=== PATIENT | female | born 1960 | race Caucasian/White ===

== ENCOUNTER → 2019-11-06 15:38 | Outpatient (CLI) | payer BC, SELFPAY ==
--- NOTE | ~2019-11-06 | MM_ITS ---
EXAMINATION: MM screening [facility] HISTORY: Screening mammogram TECHNIQUE: Craniocaudal and mediolateral oblique 3-D tomosynthesis images were obtained and synthetic 2-D images were generated. CAD analysis was submitted and interpreted. COMPARISON: 08/01/2018, 08/06/2017, 05/26/2016 BREAST PARENCHYMAL COMPOSITION: The breasts are heterogeneously dense, which may obscure small masses . FINDINGS: There is no evidence of suspicious mass, calcification, or architectural distortion to sugg est malignancy in either breast. There has been no suspicious interval change. IMPRESSION: 1. No mammographic evidence of malignancy. 2. Recommend routine screening mammography in one year. BI-RADS Category 1: Negative Reviewed, dictated and finalized at location A.
== END ==
PROVIDERS: Visit Provider Nurse Practitioner
DX: Z12.31 Encounter for screening mammogram for malignant neoplasm of breast (principal)
CPT/HCPCS: 77063; 77067

== ENCOUNTER → 2021-02-17 14:55 | Outpatient (CLI) | payer BC, SELFPAY ==
--- NOTE | ~2021-02-17 | MM_ITS ---
EXAMINATION: MM screening [facility] w [facility] HISTORY: Screening TECHNIQUE: Craniocaudal and mediolateral oblique 3-D tomosynthesis images were obtained and synthetic 2-D images were generated. CAD analysis was submitted and interpreted. COMPARISON: Comparison to multiple prior studies sequentially, with oldest reviewed study dated 04/26. BREAST PARENCHYMAL COMPOSITION: There are scattered areas of fibroglandular density. FINDINGS: There is no evidence of suspicious mass, calcification, or architectural distortion to sugg est malignancy in either breast. There has been no suspicious interval change. IMPRESSION: 1. No mammographic evidence of malignancy. 2. Recommend routine screening mammography in one year. BI-RADS Category 1: Negative Reviewed, dictated and finalized at location A. CONTROLS TECHNICIAN
== END ==
PROVIDERS: Visit Provider Nurse Practitioner
DX: Z12.31 Encounter for screening mammogram for malignant neoplasm of breast (principal)
CPT/HCPCS: 77063; 77067

== ENCOUNTER 2021-03-11 00:18 | Day surgery (SDC) | payer BC, SELFPAY ==
[2021-02-26 14:40] VITALS: BMI 28.8
[2021-03-11 07:14] VITALS: BP 151/78; PULSE 87; RESP 16; TEMP 36.1; O2SAT 100; BMI 27.5
[2021-03-11] MEDS: LACTATED RINGERS 1,000 ML 150 ML IV CONT (07:29)
--- NOTE | 2021-03-11 07:29 | WPDGICN ---
Assessment and Plan Assessment and plan (1) Encounter for screening colonoscopy: Code(s): Z12.11 - Encounter for screening for malignant neoplasm of colon Status: Acute Assessment and Plan: Patient presents for screening colonoscopy. Appears to be at average risk for colon polyps. GI Consult Note Consult date/time: 03/11/21 07:29 HPI: Toma Gutierrez is a 61 year old female Presents for screening colonoscopy. Patient's current weight appetite bowel movements are normal. She denies abdominal pain. She has had no bleeding. Family history is noncontributory. Patient's last colonoscopy was more than 10 years ago. She presents today for neoplasia screening. Review of Systems Review of Systems: All systems reviewed & are unremarkable except as noted in HPI and below PMFSH Family History Family History (Updated 10/11/15 @ 23:19 by DOCTOR UNKNOWN) Mother Family history of blood dyscrasia Hypertension Family history of heart disease in male family member before age 55 Family history of malignant neoplasm Father Depression Family history of diabetes mellitus in first degree relative Family history of heart disease in male family member before age 55 Family history of congenital heart disease Grandparent Hypertension Cerebrovascular accident Family history of heart disease in male family member before age 55 Social History Social History Smoking status: Never smoker Second hand tobacco smoke exposure: No Alcohol intake: current Substance use: never Substance use type: does not use Living arrangements: with family Spiritual care concerns: No Meds Home Medications and Allergies Home Medications Medication Instructions Recorded Confirmed Type Citracel 500 mg PO DAILY 11/09/19 02/26/21 History apremilast [Otezla] 30 mg PO BID 11/09/19 02/26/21 History atorvastatin 10 mg PO DAILY 11/09/19 02/26/21 History omgerbo-xfmirntgt-igbo 1 tab-cap PO DAILY 11/09/19 02/26/21 History cholecalciferol (vitamin D3) 25 mcg PO BID 11/09/19 02/26/21 History [Vitamin D3] lactobacillus combination no.8 3,000 mmu cells PO DAILY 11/09/19 02/26/21 History [Adult Probiotic] paroxetine HCl 20 mg PO DAILY 11/09/19 02/26/21 History rivaroxaban [Xarelto] 20 mg PO DAILY 11/09/19 02/26/21 History sodium,potassium,mag sulfates See Rx Instructions .ROUTE 04/16/20 Rx [Suprep Bowel Prep Kit] .COMPLEX #1 ml calcium 600 mg PO DAILY 02/26/21 02/26/21 History Allergies Allergy/AdvReac Type Severity Reaction Status Date / Time No Known Allergies Allergy Verified 02/26/21 14:41 Vital Signs Vital Signs - 24 hr 03/11/21 07:14 Temperature 97 F L Pulse Rate 87 Respiratory Rate 16 Blood Pressure 151/78 H Pulse Oximetry 100 Exam Narrative: Physical exam reveals patient to be alert. Vital signs stable. HEENT exam is unremarkable. Patient is anicteric. Lungs are clear to auscultation and percussion. Heart is without murmur or extra sounds. Abdominal exam bowel sounds are present soft nontender with no organomegaly. Digital external rectal exam is normal.
--- NOTE | 2021-03-11 07:42 | WPDANESEPPF ---
Anes - Initial Pre Proc Eval Procedure: Operation Date: 03/11/21 08:30 Proposed Procedures p Screening Colonoscopy - Philipp Lamb MD Date/Time: 03/11/21 07:42 Surgeon: Philipp Lamb MD Pre Op Diagnosis: neoplasm screening Patient Data Age: 61 Gender: F Height: 1.52 m Weight: 64 kg Last Vital Signs Temp 36.1 C L 03/11/21 07:14 Pulse 87 03/11/21 07:14 Resp 16 03/11/21 07:14 BP 151/78 H 03/11/21 07:14 Pulse Ox 100 03/11/21 07:14 Allergies Allergy/AdvReac Type Severity Reaction Status Date / Time No Known Allergies Allergy Verified 02/26/21 14:41 Home Medications Medication Instructions Recorded Confirmed Type Citracel 500 mg PO DAILY 11/09/19 02/26/21 History apremilast [Otezla] 30 mg PO BID 11/09/19 02/26/21 History atorvastatin 10 mg PO DAILY 11/09/19 02/26/21 History syaofuu-nfjfugnbg-dkaz 1 tab-cap PO DAILY 11/09/19 02/26/21 History cholecalciferol (vitamin D3) 25 mcg PO BID 11/09/19 02/26/21 History [Vitamin D3] lactobacillus combination no.8 3,000 mmu cells PO DAILY 11/09/19 02/26/21 History [Adult Probiotic] paroxetine HCl 20 mg PO DAILY 11/09/19 02/26/21 History rivaroxaban [Xarelto] 20 mg PO DAILY 11/09/19 02/26/21 History sodium,potassium,mag sulfates See Rx Instructions .ROUTE 04/16/20 Rx [Suprep Bowel Prep Kit] .COMPLEX #1 ml calcium 600 mg PO DAILY 02/26/21 02/26/21 History Patient hx anesthesia problems: none Family hx anesthesia problems: none Results Review: All pre-operative results and documents have been reviewed as part of the pre-operative evaluation. [facility] Past Medical History Medical History (Updated 03/11/21 @ 07:42 by Oz Yee MD) Factor V deficiency Hyperlipidemia Melanoma Surgical History Surgical History (Updated 03/11/21 @ 07:44 by Oz Yee MD) H/O arthroscopic knee surgery H/O: hysterectomy Family History Family History Mother Family history of blood dyscrasia Hypertension Family history of heart disease in male family member before age 55 Family history of malignant neoplasm Father Depression Family history of diabetes mellitus in first degree relative Family history of heart disease in male family member before age 55 Family history of congenital heart disease Grandparent Hypertension Cerebrovascular accident Family history of heart disease in male family member before age 55 Social History Social History Smoking status: Never smoker Second hand tobacco smoke exposure: No Alcohol intake: current Substance use: never Substance use type: does not use Living arrangements: with family Spiritual care concerns: No Anes - Eval Final PreProcedure Day of Procedure 03/11/21 07:42 Patient weight: overweight Heart: regular rate and rhythm Lungs: clear to auscultation Airway: Mallampati scale class II Neurological: alert and oriented Last oral intake: >/= 8 hours ASA classification: III Emergent: no Anesthetic plan: proceed Anesthesia type and monitoring: general GIVS and standard monitoring Results Review: All pre-operative results and documents have been reviewed as part of the pre-operative evaluation. Informed Consent: The patient's anesthetic plan and its attendant risks and benefits were discussed with the patient/family/POA. Questions were solicited and answers provided to the satisfaction of the patient/family/POA.
[2021-03-11 08:53] VITALS: BP 88/53; PULSE 70; RESP 18; O2SAT 97
[2021-03-11 09:03] VITALS: BP 106/66; PULSE 64; RESP 16; O2SAT 96
[2021-03-11 09:13] VITALS: BP 104/64; PULSE 55; RESP 16; O2SAT 100
== END 2021-03-11 09:28 | disposition home or self-care (01) ==
PROVIDERS: Visit Provider Internal Medicine Gastroenterology
PROC: 0DJD8ZZ Inspection of Lower Intestinal Tract, Via Natural or Artificial Opening Endoscopic (ICD-10-PCS; CPT 45378; principal; 2021-03-11 08:30)
DX: Z12.11 Encounter for screening for malignant neoplasm of colon (principal); D68.51 Activated protein C resistance; E78.5 Hyperlipidemia, unspecified; Z79.01 Long term (current) use of anticoagulants
CPT/HCPCS: 45378; J2704; J7120

== ENCOUNTER → 2021-06-09 12:12 | Outpatient (CLI) | payer BC, SELFPAY ==
--- NOTE | ~2021-06-09 | DEXA_ITS ---
Bone Density Report Name: DEREK SPENCER Age: 61 Sex: Female Ethnicity: White Date of : 1960 Indication: osteopenia; hysterectomy; postmenopausal Referring Provider: Hira, Deepti Study: Bone densitometry was performed. Exam Date: June 09, 2021 Accession number: [id number] Bone Density: Region BMD T-score Z-score Classification AP Spine (L1-L4) 0.900 -1.3 0.3 Osteopenia Femoral Neck (Left) 0.700 -1.3 0.1 Osteopenia Total Hip (Left) 0.889 -0.4 0.7 Normal Femoral Neck (Right) 0.674 -1.6 -0.2 Osteopenia Total Hip (Right) 0.888 -0.4 0.7 Normal Total Hip Mean 0.889 -0.4 0.7 Normal World Health Organization criteria for BMD impression classify patients as: Normal (T-score at or above -1.0), Osteopenia (T-score between -1.0 and -2.5), or Osteoporosis (T-score at or below -2.5). 10-year Fracture Risk(1): Major Osteoporotic Fracture 8.6% Hip Fracture 0.8% Reported Risk Factors: [place] (), Neck BMD=0.674, BMI=28.1 (1) FRAX(R) Version 3.08. Fracture probability calculated for an untreated patient. Fracture probability may be lower if the patient has received treatment. Previous Exams: Region Exam Age BMD T-score BMD Change BMD Change Date g/cm2 vs Baseline vs Previous AP Spine(L1-L4) 06/09/2021 61 0.900 -1.3 -0.007 -0.007 05/26/2016 56 0.907 -1.3 Total Hip(Left) 06/09/2021 61 0.889 -0.4 -0.045* -0.045* 05/26/2016 56 0.934 -0.1 Total Hip(Right) 06/09/2021 61 0.888 -0.4 -0.041* -0.041* 05/26/2016 56 0.928 -0.1 *Denotes significance at 95% confidence level, LSC for AP Spine = 0.022 g/cm2, LSC for Total Hip = 0.027 g/cm2 Clinical Information Provided by Patient: Has used the following medications: Vitamin D, Calcium Has the following medical conditions: Hysterectomy Patient maximum height was 60.8 Menopause Age: 43 Does not regularly consume dairy products Drinks caffeinated beverages Onset of menses at age 14 Number of children 3 Impression: The patient has low bone mass, based on the Right Femoral Neck T-score. The patient has an estimated ten-year risk of hip fracture of 0.8% and an estimated ten-year risk of major fracture of 8.6%, based on the WHO FRAX algorithm. The BMD for the Total Hip(Left) decreased, changing by -0.045 since the last DXA exam. The BMD for the Total Hip(Right) decreased, changing by -0.041 since the last DXA exam. Discussi
== END ==
PROVIDERS: Visit Provider Nurse Practitioner
DX: Z13.820 Encounter for screening for osteoporosis (principal); M85.88 Other specified disorders of bone density and structure, other site; M85.852 Other specified disorders of bone density and structure, left thigh; M85.851 Other specified disorders of bone density and structure, right thigh
CPT/HCPCS: 77080

== ENCOUNTER 2021-12-24 15:52 | Emergency (ER) | payer BC, SELFPAY ==
--- NOTE | ~2021-12-24 | XR_ITS ---
EXAMINATION: XR chest 2V DATE: 12/24/2021 17:02 INDICATION: Midsternal chest pain. Hypertension. TECHNIQUE: PA and lateral views of the chest were obtained. COMPARISON: Chest radiograph dated 12/16/17 FINDINGS: The lungs remain clear with no focal airspace opacities, pulmonary edema, pleural effusion or pneumot horax. The cardiomediastinal silhouette is normal. Mild to moderate thoracic spondylosis. IMPRESSION: 1. No acute cardiopulmonary disease. Reviewed, dictated and finalized at location B.
[2021-12-24 15:59] VITALS: BP 174/88; PULSE 90; RESP 18; TEMP 36.6; O2SAT 100
--- NOTE | 2021-12-24 16:13 | ECG_ITS ---
Measurements Intervals [place] Rate: 80 P: 20 ME: 131 QRS: 29 QRSD: 80 T: 18 QT: 371 QTc: 428 Interpretive Statements SINUS RHYTHM LOW QRS VOLTAGE IN PRECORDIAL LEADS [QRS DEFLECTION < 1.0 mV IN CHEST LEADS] FOR R-WAVE PROGRESSIO NONSPECIFIC ST-T CHANGES NO PREVIOUS ECG AVAILABLE FOR COMPARISON Electronically Signed On 12-24-2021 19:54:41 CDT by Nathalie Barragan M.D.
[2021-12-24 16:35] VITALS: PULSE 77; RESP 18; O2SAT 99
[2021-12-24 16:37] LABS: Basophils Percent Auto 0.3 % (0.2-1.2); Eosinophils Absolute Auto 0.4 K/mm3 (0-0.3); Eosinophils Percent Auto 7.2 % (0-4.4); Hematocrit 41.6 % (37.0-47.0); Hemoglobin 13.5 g/dL (12.0-15.0); Immature Granulocyte Absolute 0.02 K/mm3 (0.00-0.031); Immature Granulocyte Percent A 0.3 % (0-0.5); Lymphocytes Absolute Auto 0.86 K/mm3 (0.9-3.2); Mean Corpuscular HGB Conc 32.5 g/dl (32-36); Mean Corpuscular Hemoglobin 30.1 pg (26-34); Mean Corpuscular Volume 92.9 fl (80-100); Mean Platelet Volume 10.1 fl (7.4-10.4); Monocytes Absolute Auto 0.5 K/mm3 (0.1-0.6); Neutrophils Percent Auto 69.2 % (45.5-73.1); Platelet Count Result 251 k/mm3 (150-375); Red Blood Count 4.48 M/mm3 (4.2-5.4); Red Cell Distribution Width 12.5 % (11.5-14.5); White Blood Count 5.7 K/mm3 (4.5-10.0)
[2021-12-24 16:45] VITALS: PULSE 74; RESP 15; O2SAT 100
[2021-12-24 16:47] LABS: INR 1.1; Prothrombin Time 13.9 Seconds (11.1-14.7)
[2021-12-24 16:48] LABS: Partial Thromboplastin Time 30.2 SECONDS (22.3-36.8)
[2021-12-24 16:51] LABS: Alanine Aminotransferase 32 U/L (6-35); Albumin Level 4.6 g/dL (3.5-5.1); Alkaline Phosphatase 88 U/L (38-126); Anion Gap 7 mmol/L (8-16); Aspartate Amino Transferase 36 U/L (14-36); Bilirubin,Total 0.7 mg/dL (0.2-1.3); Blood Urea Nitrogen 18 mg/dL (7-17); Calcium 9.4 mg/dL (8.4-10.2); Carbon Dioxide 26 mmol/L (22-30); Chloride 106 mmol/L (98-107); Estimated CRCL calculation 54 ml/min; Estimated Glomerular Filt Rate > 60; Glucose 99 mg/dL (65-110); Lipase 185 U/L (23-300); Potassium 3.8 mmol/L (3.4-5.0); Sodium 139 mmol/L (137-145)
[2021-12-24 17:01] LABS: Troponin I < 0.012 ng/mL (0.000-0.034)
[2021-12-24 17:20] VITALS: PULSE 75
[2021-12-24 17:33] VITALS: PULSE 76; RESP 18; O2SAT 98
--- NOTE | 2021-12-24 17:36 | ED.CHESTPAIN ---
HPI - Chest Pain General Chief Complaint: Chest Pain <Sarina Dotson MD - Last Filed: 12/24/21 19:26> Stated Complaint: shaky, high bp, chest heaviness into throat <Sarina Dotson MD - Last Filed: 12/24/21 19:26> Time Seen by Provider: 12/24/21 16:40 <Sarina Dotson MD - Last Filed: 12/24/21 19:26> Source: patient and RN notes reviewed <Sarina Dotson MD - Last Filed: 12/24/21 19:26> Mode of arrival: ambulatory <Sarina Dotson MD - Last Filed: 12/24/21 19:26> Limitations: no limitations <Sarina Dotson MD - Last Filed: 12/24/21 19:26> History of Present Illness HPI narrative: This is a 61 year old female with history of hyperlipidemia who presents for evaluation of chest heaviness. PAtient states she was sitting at her desk at work when she developed midsternal chest heaviness. This sensation radiated to her throat and it lasted 15 minutes. She also reports episode of heart fluttering. She denies associated diaphoresis, sob, dizziness, nausea or vomiting. She states her chest heaviness has resolved. She denies prior episodes of chest pain or shortness of breath with exertion. She does report having intermittent brief episodes of palpations but they usually don't last long. She denies history of heart disease. She reports her parents have history of heart disease. DEnies previous stress test. <Sarina Dotson MD - Last Filed: 12/24/21 19:26> Related Data Home Medications: Home Medications Medication Instructions Recorded Confirmed Citracel 500 mg PO DAILY 11/09/19 02/26/21 apremilast 30 mg tablet (Otezla) 30 mg PO BID 11/09/19 02/26/21 atorvastatin 10 mg tablet 10 mg PO DAILY 11/09/19 02/26/21 llhznjz-pkxzkdlnz-xzpf 1 tab-cap PO DAILY 11/09/19 02/26/21 cholecalciferol (vitamin D3) 25 25 mcg PO BID 11/09/19 02/26/21 mcg (1,000 unit) tablet (Vitamin D3) lactobacillus combination no.8 3 3,000 mmu cells PO DAILY 11/09/19 02/26/21 billion cell capsule (Adult Probiotic) paroxetine HCl 20 mg tablet 20 mg PO DAILY 11/09/19 02/26/21 rivaroxaban 20 mg tablet (Xarelto) 20 mg PO DAILY 11/09/19 02/26/21 calcium 600 mg capsule 600 mg PO DAILY 02/26/21 02/26/21 <Sarina Dotson MD - Last Filed: 12/24/21 19:26> Allergies/Adverse Reactions: Allergies Allergy/AdvReac Type Severity Reaction Status Date / Time No Known Allergies Allergy Verified 02/26/21 14:41 <Sarina Dotson MD - Last Filed: 12/24/21 19:26> Review of Systems Review of Systems: All systems reviewed & are unremarkable except as noted in HPI and below <Sarina Dotson MD - Last Filed: 12/24/21 19:26> Constitutional: Constitutional: Denies chills, Denies fatigue and Denies fever(s) <Sarina Dotson MD - Last Filed: 12/24/21 19:26> Cardiovascular: Cardiovascular: Reports chest pain, Reports rapid heart rate and Reports radiating jaw, neck or arm pain <Sarina Dotson MD - Last Filed: 12/24/21 19:26> Respiratory: Respiratory: Denies chest congestion, Denies cough, Denies dyspnea and Denies wheezing <Sarina Dotson MD - Last Filed: 12/24/21 19:26> Gastrointestinal: Gastrointestinal: Denies abdominal pain, Denies bloating, Denies nausea and Denies vomiting <Sarina Dotson MD - Last Filed: 12/24/21 19:26> [facility] Past Medical History Medical History: Medical History Factor V deficiency Hyperlipidemia Melanoma <Sarina Dotson MD - Last Filed: 12/24/21 19:26> Surgical History Surgical History: Surgical History H/O arthroscopic knee surgery H/O: hysterectomy <Sarina Dotson MD - Last Filed: 12/24/21 19:26> Family History Family History: Family History Mother Family history of blood dyscrasia Hypertension Family history of heart disease in male family member befor
[2021-12-24 17:46] VITALS: BP 142/77; PULSE 69; PULSE 75; RESP 13; RESP 15; O2SAT 99
[2021-12-24 19:50] LABS: Troponin I < 0.012 ng/mL (0.000-0.034)
--- NOTE | 2021-12-24 20:16 | PC.NURSE ---
Discussed with pt ordered medications prior to this RN's shift arrival. Pt reports 0/10 pain. Pt states they do not want the medications at this time.
== END 2021-12-24 20:31 | disposition home or self-care (01) ==
PROVIDERS: Emergency Medicine; Emergency Provider Emergency Medicine
DX: R07.2 Precordial pain (principal); E78.5 Hyperlipidemia, unspecified; D68.2 Hereditary deficiency of other clotting factors; Z90.710 Acquired absence of both cervix and uterus; Z79.01 Long term (current) use of anticoagulants; R94.31 Abnormal electrocardiogram [ECG] [EKG]
CPT/HCPCS: 36415; 71046; 80053; 83690; 84484; 85025; 85610; 85730; 93005; 99284

== ENCOUNTER → 2022-04-27 13:11 | Outpatient (CLI) | payer OTHER, SELFPAY ==
--- NOTE | ~2022-04-27 | MM_ITS ---
EXAMINATION: MM screening [facility] BI w ramez HISTORY: Screening mammogram TECHNIQUE: Craniocaudal and mediolateral oblique 3-D tomosynthesis images were obtained and synthetic 2-D images were generated. CAD analysis was submitted and interpreted. COMPARISON: 02/17/2021, 11/02/2019, 08/09/2018 bilateral screening mammogram examinations BREAST PARENCHYMAL COMPOSITION: The breasts are heterogeneously dense, which may obscure small masses . FINDINGS: Proximal 3 5.5 x 7.5 mm irregular opacity in the posterior lower inner left breast on CC projection. Diagnostic left mammogram is recommended, with ultrasound if required. Otherwise there is no evidence of suspicious mass, calcification, or architectural distortion to sugg est malignancy in either breast. There has been no other suspicious interval change. IMPRESSION: 1. New approximately 5.5 x 7 x 5 mm irregular mammographic opacity in the posterior lower inner left breast 2. Diagnostic left mammogram is recommended, with ultrasound if required. BI-RADS Category 0: Incomplete: Needs additional imaging evaluation. Reviewed, dictated and finalized at location A. S DECORATOR IMPRESSION: 1. New approximately 5.5 x 7 x 5 mm irregular mammographic opacity in the poste rior lower inner left breast 2. Diagnostic left mammogram is recommended, with ultrasound if required. BI-RADS Category 0: Incomplete: Needs additional imaging evaluation.
== END ==
PROVIDERS: Visit Provider Nurse Practitioner
DX: Z12.31 Encounter for screening mammogram for malignant neoplasm of breast (principal); R92.8 Other abnormal and inconclusive findings on diagnostic imaging of breast
CPT/HCPCS: 77063; 77067